=== PATIENT | male | born 1945 | race Caucasian/White ===

== ENCOUNTER 2017-07-22 05:08 | Emergency (ER) | payer OTHER, BC ==
[~2017-07-22] VITALS: Ht 167.6 cm; Wt 85.7 kg
[~2017-07-22 05:08] MED LIST: ARTIFICIAL TEAR15 M3 BOTH EYES; ASCORBIC ACID500 M3 PO; DAILY VITE1 EAC1 PO; LOW DOSE ASPIRI81 M1 PO; PROCTOSOL-HC28.35 GM PR; STOOL SOFTENER100 M1 PO
[2017-07-22 05:30] LABS: ADD MIUA? NO; BILIRUBIN NEGATIVE; BLOOD NEGATIVE; COLOR YELLOW ((YELLOW)); GLUCOSE (STRIP) NEGATIVE; KETONES NEGATIVE; LEUKOCYTES NEGATIVE; NITRITE NEGATIVE; PROTEIN (STRIP) NEGATIVE; SPECIFIC GRAVITY 1.018 (1.000-1.030); UCUL ADDED? NO; UROBILINOGEN 0.2 MG/DL (0.2-1.0)
[2017-07-22 05:39] LABS: HEMATOCRIT 47.1 % (38.0-50.0); MCH 32.9 PG (29.0-34.0); MCHC 33.1 G/DL (30.0-36.0); MCV 99.4 FL (86-99); MEAN PLAT.VOLUME 9.3 uM^3 (9.0-12.4); PLATELET COUNT 346 K/uL (156-360); RBC DIS.WIDTH-CV 12.7 % (11.8-14.6); RBC DIS.WIDTH-SD 46.9 % (39-53); RED BLOOD COUNT 4.74 M/uL (4.00-5.50); WHITE BLOOD COUNT 9.9 K/uL (4.1-10.2)
[2017-07-22 05:43] LABS: CHLORIDE 110 mEq/L (99-109); SODIUM 141 mEq/L (136-147)
[2017-07-22 05:45] LABS: GLUCOSE 110 mg/dL (70-99)
[2017-07-22 05:46] LABS: ANION GAP 9 MEQ/L (2-14)
[2017-07-22 05:49] LABS: GFR ESTIMATE (CALCULATED) > 59 mL/min/; UREA NITROGEN (BUN) 20 mg/dL (9-23)
[2017-07-22] MEDS ORDERED: BENTYL20 MG PO (08:49)
[2017-07-22 09:14] VITALS: BP 139/71
== END 2017-07-22 09:15 | disposition home or self-care (01) ==
LOC: EME 05:08
DX: R10.30 Lower abdominal pain, unspecified (principal); K59.00 Constipation, unspecified; K52.9 Noninfective gastroenteritis and colitis, unspecified; N20.0 Calculus of kidney; Z90.49 Acquired absence of other specified parts of digestive tract; Z87.442 Personal history of urinary calculi; Z79.82 Long term (current) use of aspirin; F17.200 Nicotine dependence, unspecified, uncomplicated
CPT/HCPCS: 74176; 80048; 81003; 85027; 93005; 99281; 99285; J2270; J7030